=== PATIENT | male | born 1990 | race Caucasian/White ===

== ENCOUNTER 2022-03-26 12:10 | Emergency (ER) | payer SELFPAY ==
[2022-03-26] MEDS ORDERED: Colchicine 0.6 MG Tab PO ONE ×2 (12:45→12:54)
[2022-03-26] MEDS ORDERED: methylPREDNISolone Sodium Succinate 125 MG/2 ML SDV IM ONE (12:46)
== END 2022-03-26 13:31 | disposition home or self-care (01) ==
LOC: MW.ED 12:10
DX: M10.9 Gout, unspecified (principal); Z79.899 Other long term (current) drug therapy
CPT/HCPCS: 96372; 99283; A9270; J2930

== ENCOUNTER 2022-05-22 01:45 | Emergency (ER) | payer SELFPAY ==
[2022-05-22] MEDS ORDERED: Colchicine 0.6 MG Tab PO STA (03:41)
[2022-05-22] MEDS ORDERED: predniSONE 20 MG Tab PO ONE (03:45)
== END 2022-05-22 04:00 | disposition home or self-care (01) ==
LOC: MW.ED 01:45
DX: M10.9 Gout, unspecified (principal); I10 Essential (primary) hypertension; Z79.899 Other long term (current) drug therapy; Z86.16 Personal history of COVID-19
CPT/HCPCS: 99283; A9270; 99282

== ENCOUNTER 2023-06-14 19:11 | Emergency (ER) | payer BC ==
[2023-06-14] MEDS ORDERED: predniSONE 20 MG Tab PO STA (19:59)
== END 2023-06-14 20:00 | disposition home or self-care (01) ==
LOC: MW.ED 19:11
DX: M79.672 Pain in left foot (principal); I10 Essential (primary) hypertension; Z86.16 Personal history of COVID-19; Z79.899 Other long term (current) drug therapy
CPT/HCPCS: 99283; A9270